=== PATIENT | male | born 1985 | race Caucasian/White ===

== ENCOUNTER → 2020-05-05 14:37 | Outpatient (CLI) | payer OTHER, SELFPAY ==
--- NOTE | ~2020-05-05 | XR_ITS ---
EXAMINATION: XR thoracic spine 2V EXAM DATE: 05/05/2020 15:43 INDICATION: neck pain, back pain TECHNIQUE: Frontal and lateral projections of the thoracic spine as well as lateral swimmers projecti on of the upper thoracic spine for interpretation. There is no prior study for comparison. FINDINGS: There is mild mid thoracic dextroscoliosis, lower thoracic levoscoliosis. Minimal loss of midthoracic disc heights. No endplate erosive change. Paraspinal soft tissue is unremarkable. There are no acute fractures identified. IMPRESSION: Mild thoracic scoliosis. Minimal mid thoracic disc disease. Reviewed, dictated and finalized at location B. OLOGIST
--- NOTE | ~2020-05-05 | XR_ITS ---
EXAMINATION: XR lumbar spine 2-3V EXAM DATE: 05/05/2020 15:43 INDICATION: neck pain, back pain TECHNIQUE: Lumber spine frontal, lateral, lateral L5-S1 projections for interpretation. There is no prior study for comparison. FINDINGS: The vertebral bodies are aligned in the AP dimension. Vertebral body and disc heights are well-maintained. Lower lumbar facet arthropathy. Sacrum, sacroiliac joints, sacral arcuate lines are intact. No endplate erosive change. There are no acute fractures identified. IMPRESSION: Mild lower lumbar facet arthropathy. Reviewed, dictated and finalized at location B. Y WORKER
--- NOTE | ~2020-05-05 | XR_ITS ---
EXAMINATION: XR_CERV2-3V_CR EXAM DATE: 05/05/2020 15:43 INDICATION: Neck pain. TECHNIQUE: Cervical spine frontal, lateral, lateral swimmers, and open-mouth odontoid projections. There is no prior study for comparison. FINDINGS: There is mild disc disease at C4-5 and C6-7. The vertebral bodies are aligned in the AP di mension. Mild cervical facet arthropathy. Lung apices unremarkable. Prevertebral soft tissue and pre- dens space are within normal limits. The odontoid process is intact. The lateral masses of C1 line u p with C2. IMPRESSION: 1. Mild cervical spondylosis. Reviewed, dictated and finalized at location B. OVISUAL TECHNICIAN
== END ==
PROVIDERS: PCP Family Medicine
DX: M41.9 Scoliosis, unspecified (principal); M51.24 Other intervertebral disc displacement, thoracic region; M47.892 Other spondylosis, cervical region
CPT/HCPCS: 72040; 72070; 72100

== ENCOUNTER → 2020-11-25 10:32 | Outpatient (CLI) | payer OTHER, SELFPAY ==
--- NOTE | ~2020-11-25 | MR_ITS ---
EXAMINATION: MR lumbar spine wo con DATE: 11/25/2020 11:28 INDICATION: Lumbar spondylosis without myelopathy. TECHNIQUE: Magnetic resonance imaging (MRI) of the lumbar spine was performed without intravenous con trast. Sequences included sagittal T2-weighted FSE, sagittal T2-weighted FS FSE, sagittal T1-weighted FSE, and axial T2-weighted FSE. COMPARISON: Lumbar spine radiographs 05/05/2020 FINDINGS: There is 6 degrees dextrocurvature of thoracolumbar spine. There is mild chronic height los s of L5 vertebral body posteriorly. There is mildly decreased disc height at L4-L5 and L5-S1. The dis jonathan spinal cord signal intensity is normal. The conus medullaris is at L1. The following disc levels are specifically discussed: L1-L2: The disc does not extend beyond the endplate margin. There is mild bilateral facet joint osteo arthritis. There is no neural foraminal stenosis. There is no central canal stenosis. L2-L3: The disc does not extend beyond the endplate margin. There is moderate bilateral facet joint o steoarthritis. There is no neural foraminal stenosis. There is no central canal stenosis. L3-L4: The disc does not extend beyond the endplate margin. There is moderate bilateral facet joint o steoarthritis. There is no neural foraminal stenosis. There is no central canal stenosis. L4-L5: The disc is bulging and has an annular fissure. The disc exerts mass effect on right L5 nerve root and abuts left L5 nerve root in the lateral recesses. There is moderate bilateral facet joint os teoarthritis. There is mild bilateral neural foraminal stenosis. There is mild central canal stenosis . L5-S1: The disc is bulging and has an annular fissure. There is moderate bilateral facet joint osteoa rthritis. There is moderate right and mild left neural foraminal stenosis. There is mild central uzma l stenosis. IMPRESSION: 1. Moderate lower lumbar spondylosis. Reviewed, dictated and finalized at location A.
== END ==
PROVIDERS: Visit Provider Nurse Practitioner Family
DX: M47.816 Spondylosis without myelopathy or radiculopathy, lumbar region (principal); G89.29 Other chronic pain; M54.9 Dorsalgia, unspecified
CPT/HCPCS: 72148

== ENCOUNTER 2020-12-15 16:33 | Emergency (ER) | payer OTHER, SELFPAY ==
[2020-12-15 16:45] VITALS: BP 147/93; PULSE 78; RESP 16; TEMP 36.7; O2SAT 99
[2020-12-15 16:50] VITALS: BP 147/93; PULSE 78; RESP 16; TEMP 36.7; O2SAT 99
[2020-12-15 16:54] VITALS: BP 148/78; PULSE 78
[2020-12-15 16:56] VITALS: BP 148/81; PULSE 82
[2020-12-15 16:57] VITALS: BP 141/85; PULSE 86
--- NOTE | 2020-12-15 17:07 | ECG_ITS ---
Measurements Intervals [place] Rate: 78 P: 30 OR: 148 QRS: 16 QRSD: 96 T: 26 QT: 368 QTc: 420 Interpretive Statements SINUS RHYTHM EARLY PRECORDIAL R/S TRANSITION BASELINE ARTIFACT- I, II, III, AVR, AVL, AVF BORDERLINE ECG Electronically Signed On 12-16-2020 8:01:33 CDT by Ace Frye D.O.
[2020-12-15] MEDS: MECLIZINE HCL 25 MG TABLET PO (17:25)
--- NOTE | 2020-12-15 17:34 | ED.GENADULT ---
HPI - General Adult General Chief complaint: Dizziness Stated complaint: dizzy/light headed Time Seen by Provider: 12/15/20 16:45 History of Present Illness HPI narrative: 35-year-old male presents with his mom with complaints of being at work today and started having dizziness approximately 1600 today. No chest pain or shortness of breath. No blurry vision or change in vision. Patient reports that he just feels off balance. Change in position does not change the way he feels. Denies chest pain, nausea, vomiting or diarrhea. No abdominal pain. Reports starting Flexeril last night. Related Data Home Medications Medication Instructions Recorded Confirmed allopurinol 100 mg tablet 100 mg PO DAILY 07/21/19 12/15/20 aripiprazole 10 mg tablet 10 mg PO DAILY 07/21/19 12/15/20 azathioprine 50 mg tablet 50 mg PO DAILY 07/21/19 12/15/20 bupropion HCl 150 mg tablet,12 hr 150 mg PO DAILY 07/21/19 12/15/20 sustained-release folic acid 1 mg tablet 1 mg PO DAILY 07/21/19 12/15/20 mesalamine 1.2 gram tablet,delayed 2.4 gm PO BID tablet 07/21/19 12/15/20 release Allergies Allergy/AdvReac Type Severity Reaction Status Date / Time No Known Allergies Allergy Verified 12/07/20 13:03 Review of Systems Review of Systems: All systems reviewed & are unremarkable except as noted in HPI and below Constitutional: Constitutional: Reports no additional constitutional complaints, Denies chills, Denies fatigue, Denies fever(s) and Denies weakness Eyes: Eyes: Reports no additional eye complaints, Denies change in vision and Denies photophobia ENT: Reports system reviewed and no additional complaints, except as documented Cardiovascular: Cardiovascular: Reports no additional cardiovascular complaints and Denies chest pain Respiratory: Respiratory: Reports no additional respiratory complaints, Denies chest congestion, Denies cough, Denies dyspnea and Denies wheezing Gastrointestinal: Gastrointestinal: Reports no additional gastrointestinal complaints Genitourinary: Genitourinary: Reports no additional male genitourinary complaints Musculoskeletal: Musculoskeletal: Reports no additional musculoskeletal complaints, Denies back pain, Denies myalgias, Denies joint swelling and Denies muscle cramps Integumentary/Breasts: Skin/Breast: Reports system reviewed and no additional complaints, except as docu Neurologic: Reports as per HPI, Denies confusion, Reports vertigo, Reports dizziness, Denies syncope, Denies headache(s), Denies focal weakness, Denies numbness and Denies weakness Psychiatric: Psychiatric: Reports as per HPI and Reports anxiety (When dizziness first started, denies on exam) Endocrine: Endocrine: Reports no additional endocrine complaints Allergic/Immunologic: Allergic/Immunologic: Reports no additional allergic/immunologic complaints PMFSH Past Medical History Medical History Acute pharyngitis, unspecified (06/06/18) Adverse effect of smallpox vaccines, initial encounter BMI 35.0-35.9,adult Body mass index [BMI] 31.0-31.9, adult (07/08/17) Body mass index [BMI] 33.0-33.9, adult (11/13/18) Chest discomfort Colitis Dietary counseling and surveillance (06/19/18) Dysfunction of left eustachian tube Encounter to establish care Left ear pain Nasal drainage Screening for diabetes mellitus Screening for thyroid disorder Screening, lipid Strep pharyngitis Tobacco abuse Vitamin D deficiency Vitreous floaters of left eye Surgical History Surgical History Cholecystectomy planned Family History Family History Grandparent Malignant neoplasm of prostate Family history of malignant neoplasm of breast Father Family history of type 2 diabetes mellitus Lung cancer Brain cancer Mother HLA B27 (HLA B27 positive) Ankylosing spondylitis Sibling No problems noted.
== END 2020-12-15 17:50 | disposition home or self-care (01) ==
PROVIDERS: Emergency Provider Nurse Practitioner; PCP Family Medicine
DX: R42 Dizziness and giddiness (principal)
CPT/HCPCS: 93005; 99213; A9270; G0463

== ENCOUNTER → 2021-12-08 02:35 | Outpatient (CLI) | payer OTHER, SELFPAY ==
[2021-12-08 16:50] LABS: SARS-CoV-2 RNA PCR Negative
== END ==
PROVIDERS: PCP Family Medicine; Visit Provider Family Medicine
DX: R51.9 Headache, unspecified (principal); T26.40XA Burn of unspecified eye and adnexa, part unspecified, initial encounter; H93.8X3 Other specified disorders of ear, bilateral; Z20.822 Contact with and (suspected) exposure to COVID-19
CPT/HCPCS: C9803; U0003; U0005